=== PATIENT | male | born 1985 | race Hispanic/Latino ===

== ENCOUNTER 2016-08-10 16:25 | Emergency (ER) | payer OTHER ==
[~2016-08-10] VITALS: Ht 175.3 cm; Wt 104.3 kg
[2016-08-10 16:30] VITALS: BP 161/87
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
--- NOTE | 2016-08-10 18:05 | RADIOLOGY REPORT ---
EXAMINATION: XR WRIST, RIGHT CLINICAL INFORMATION: Wrist pain. No known injury. COMPARISON: None. TECHNIQUE: Three views of the right wrist. FINDINGS: No fracture or dislocation. The carpal arcs appear maintained. No widening of the distal radial ulnar joint. No obscuration of the pronator fat pad. IMPRESSION: No acute osseous abnormalities. No radiographic explanation for the patient's wrist pain.
[2016-08-10] MEDS ORDERED: TRAMADOL HCL50 M1 PO ×2 (18:14→18:16)
== END 2016-08-10 18:25 ==
LOC: ERH 16:25 → EDBD 16:35 → ERH 18:25
DX: S63.501A Unspecified sprain of right wrist, initial encounter (principal); X58.XXXA Exposure to other specified factors, initial encounter; Y92.9 Unspecified place or not applicable; Y93.64 Activity, baseball
CPT/HCPCS: 73110-RT